=== PATIENT | female | born 1990 | race Caucasian/White ===

== ENCOUNTER → 2022-12-18 | Outpatient (CLI) | payer OTHER ==
[~2022-12-18] MED LIST: PROHANCE 279.3MG/ML 5ML VIAL As Ordered ONE
== END ==
LOC: M RAD 12:34
PROVIDERS: ATTEND Family Medicine
DX: Z14.8 Genetic carrier of other disease (principal)
CPT/HCPCS: A9576; C8908

== ENCOUNTER → 2023-04-16 | Outpatient (REF) ==
[~2023-04-16] MED LIST changes: +AMIT10TA7 PO; +MELO15TA28 PO; -PROHANCE 279.3MG/ML 5ML VIAL As Ordered ONE
== END ==
LOC: M LAB 14:07
PROVIDERS: ATTEND Nurse Practitioner Adult Health
DX: Z02.89 Encounter for other administrative examinations (principal)

== ENCOUNTER → 2023-06-21 | Outpatient (REF) ==
[2023-06-21 15:59] LABS: RSV AMPLIFICATION NEGATIVE (NEGATIVE)
== END ==
LOC: M EMP 12:24
PROVIDERS: ATTEND Family Medicine
DX: Z20.822 Contact with and (suspected) exposure to COVID-19 (principal)

== ENCOUNTER → 2023-09-19 | Outpatient (REF) ==
[2023-09-19 14:06] LABS: RSV AMPLIFICATION NEGATIVE (NEGATIVE)
== END ==
LOC: M EMP 11:01
PROVIDERS: ATTEND Family Medicine
DX: Z20.828 Contact with and (suspected) exposure to other viral communicable diseases (principal)

== ENCOUNTER → 2024-01-19 | Outpatient (REF) | LOC: M EMP 07:54 | PROVIDERS: ATTEND Family Medicine | DX: Z11.52 Encounter for screening for COVID-19 (principal) ==

== ENCOUNTER → 2024-04-21 | Outpatient (REF) | LOC: M EMP 07:18 | PROVIDERS: ATTEND Family Medicine | DX: Z11.52 Encounter for screening for COVID-19 (principal) ==

== ENCOUNTER → 2024-04-21 | Outpatient (REF) | LOC: M EMP 07:20 | PROVIDERS: ATTEND Family Medicine | DX: Z11.52 Encounter for screening for COVID-19 (principal) ==

== ENCOUNTER → 2024-05-06 | Outpatient (REF) | LOC: M EMP 09:02 | PROVIDERS: ATTEND Family Medicine | DX: Z11.52 Encounter for screening for COVID-19 (principal) ==